=== PATIENT | male | born 1975 | race Caucasian/White ===

== ENCOUNTER 2023-05-07 23:54 | Emergency (ER) | payer OTHER ==
[2023-05-08] VITALS: BP 125/70; PULSE 74; RESP 18; TEMP 97.5; BMI 26.1
[2023-05-08] MEDS ORDERED: DIPHTH,PERTUSS(ACELL),TET 0.5 ML DISP.SYRIN IM ONE ×2 (01:25→01:37)
[2023-05-08] MEDS ORDERED: KETOROLAC TROMETHAMINE 30 MG/1 ML VIAL IM ONE (01:25)
[2023-05-08] MEDS ORDERED: KETOROLAC TROMETHAMINE 30 MG/1 ML VIAL ONE (01:37)
[2023-05-08] MEDS ORDERED: IBUPROFEN 600 MG TABLET (FP) PO ONE ×2 (02:36→02:39)
== END 2023-05-08 02:41 | disposition home or self-care (01) ==
LOC: JER 23:54
PROC: 0HQ1XZZ Repair Face Skin, External Approach (ICD-10-PCS; 2023-05-07)
PROC: 3E0234Z Introduction of Serum, Toxoid and Vaccine into Muscle, Percutaneous Approach (ICD-10-PCS; principal; 2023-05-08)
DX: S01.81XA Laceration without foreign body of other part of head, initial encounter (principal); R68.84 Jaw pain; F41.0 Panic disorder [episodic paroxysmal anxiety]; R42 Dizziness and giddiness; W01.0XXA Fall on same level from slipping, tripping and stumbling without subsequent striking against object, initial encounter
CPT/HCPCS: 90715; 99282-25